=== PATIENT | female | born 1980 ===

== ENCOUNTER 2024-04-16 17:10 | Inpatient (IN) | payer OTHER ==
[~2024-04-16] VITALS: Ht 165.1 cm; Wt 86.8 kg
[2024-04-16 18:54] LABS: Source, Urine Clean Catch
[2024-04-16 19:01] LABS: Appearance, Urine Hazy (Clear); Blood, Urine 2+ (Neg); Color, Urine Amber (P-Yellow); Glucose Qualitative, Urine Neg (Neg); Ketones, Urine 1+ (Neg); Leukocyte Esterase, Urine 3+ (Neg); Nitrite, Urine Pos (Neg); Protein, Urine 2+ (Neg); Urobilinogen, Urine 3+ (Normal)
[2024-04-16 19:08] LABS: Bilirubin, Urine 3+ (Neg)
[2024-04-16 19:10] LABS: Bacteria Many /hpf; Squamous Epithelial Cells Mod /hpf (Few); White Blood Cells, Urine 50-100 /hpf (0-5)
[2024-04-16] MEDS ORDERED: Morphine Sulfate 4 MG/1 ML Injection IV ONE (19:55)
[2024-04-17] MEDS ORDERED: Morphine Sulfate 4 MG/1 ML Injection IV ONE (00:40)
[2024-04-17 00:58] LABS: Automated BF WBC Count 0.069 K/mm3 (0-999)
[2024-04-17] MEDS ORDERED: CefTRIAXone Sodium 1,000 MG in NS 100 ML IV ONE (01:05)
[2024-04-17 01:35] LABS: Amylase, Body Fluid 3 U/L; Glucose, Body Fluid 148 mg/dL; Lactate Dehydrogenase, Body Fl 55 U/L; Protein, Body Fluid 1.2 g/dL
[2024-04-17 02:36] LABS: RBC Count, Body Fluid 61 /mm3 (0-0)
[2024-04-17 02:38] LABS: Appearance, Body Fluid Clear (Clear); Body Fluid WBC Count 69 /mm3 (0-999); Color, Body Fluid Yellow (None-Yellow)
[2024-04-17 02:44] LABS: Total Cell Count, Body Fluid 100
[2024-04-17] MEDS ORDERED: FLU VACC TS2024-25(6MOS UP)/PF 45 MCG/0.5 ML SYRINGE IM ONE (03:05)
[2024-04-17] MEDS ORDERED: Ondansetron HCl 2 MG / ML 2ML Vial IV PRN (03:10)
[2024-04-17] MEDS ORDERED: Phytonadione 5 MG Tab PO ONE (04:00)
[2024-04-17] MEDS ORDERED: Potassium Chloride 20 MEQ/15 ML UDC PO ONE ×2 (04:00→07:45)
[2024-04-17] MEDS ORDERED: Omeprazole 20 MG CapCR PO SCH (06:00)
[2024-04-17 06:03] LABS: Albumin, Blood 1.6 g/dL (3.4-5.0); Albumin/Globulin Ratio 0.3 (0.8-1.8); Bilirubin, Total 3.7 mg/dL (0.1-1.0); Bun/Creatinine Ratio 16.1 (12.0-20.0); Calcium, Blood 7.9 mg/dL (8.5-10.1); Creatinine, Blood 0.87 mg/dL (0.40-1.00); Globulin, Blood 4.7 g/dL (2.2-4.0); Potassium, Blood 3.5 mmol/L (3.5-5.5); Total Protein, Blood 6.3 g/dL (6.4-8.2)
[2024-04-17] MEDS ORDERED: Insulin Human Lispro 100 Units/ML 3ML Syringe SC SCH (07:30)
[2024-04-17 07:42] LABS: BASOPHILS PERCENT AUTO 1 % (0-2); EOSINOPHILS ABSOLUTE AUTO 0.31 K/mm3 (0.00-0.68); EOSINOPHILS PERCENT AUTO 2 % (0-6); Hematocrit 29.3 % (33.0-51.0); Hemoglobin 9.6 g/dL (11.5-16.0); IMMATURE GRAN PERCENT AUTO 1 % (0-1); LYMPHOCYTES ABSOLUTE AUTO 1.35 K/mm3 (0.84-5.20); LYMPHOCYTES PERCENT AUTO 8 % (21-46); MONOCYTES ABSOLUTE AUTO 1.69 K/mm3 (0.16-1.47); MONOCYTES PERCENT AUTO 10 % (4-13); Mean Corpuscular HGB Conc 32.8 g/dL (31.5-36.5); Mean Corpuscular Volume 107 fL (80-100); Mean Platelet Volume 9.4 fL (9.1-12.4); NEUTROPHILS ABSOLUTE AUTO 13.83 K/mm3 (1.96-9.15); NEUTROPHILS PERCENT AUTO 80 % (41-73); Platelet Count 263 K/mm3 (150-400); RDW Standard Deviation 62.8 fL (35.1-46.3); Red Blood Cell Count 2.74 M/mm3 (3.80-5.20); White Blood Cell Count 17.38 K/mm3 (4.00-11.30)
[2024-04-17] MEDS ORDERED: Lactobacil 2-S.Thermo-Bifido 1 1 Cap PO SCH (09:00)
[2024-04-17 09:18] VITALS: BP 123/88
--- NOTE | 2024-04-17 11:19 | NUR ---
PT TITRATED OFF O2 THIS MORNING. SATS WERE 92% AT REST ON RA. WITH AMBULATION OF 20 FEET PT DROPPED TO 86% ON RA. APPLIED 1 LPM OF O2 VIA NC AND PT SATS MAINTAINED AT 90% WITH AMBULATING 100 FEET IN HALLWAY.
[2024-04-17] MEDS ORDERED: Furosemide 40 MG Tab PO ONE (16:10)
[2024-04-17] MEDS ORDERED: Albumin Human 50 ML IV ONE (16:20)
[2024-04-17 16:35] VITALS: BP 122/80
[2024-04-17] MEDS ORDERED: NS 250 ML IV PRN (17:05)
--- NOTE | 2024-04-17 18:06 | NUR ---
SHIFT SUMMARY: PT IS A/O X 4, SBA. PLEASANT AND COOPERATIVE WITH CARE. PT REPORTS PAIN TO FEET AND ABD IS TOLERABLE THROUGHOUT THE SHIFT. ABD SEVERELY DISTENDED. PARACENTESIS SITE BANDAGE CDI. NO SIGNS OF DRAINAGE FROM SITE SINCE ARRIVING FROM ER. PT DENIES NEEDS AT THIS TIME. ALBUMIN AND LASIX GIVEN PER ORDER. HAT PLACED IN TOILET AND REQUESTED PT TO CALL WHEN SHE HAS GONE TO THE BATHROOM SO WE CAN MEASURE URINE. PT V/U.
[2024-04-17 19:15] VITALS: BP 122/79
[2024-04-17] MEDS ORDERED: CefTRIAXone Sodium 1,000 MG in NS 100 ML IV SCH (21:00)
[2024-04-18 05:12] VITALS: BP 124/73
[2024-04-18 06:52] LABS: BASOPHILS ABSOLUTE AUTO 0.12 K/mm3 (0.00-0.23); BASOPHILS PERCENT AUTO 1 % (0-2); EOSINOPHILS ABSOLUTE AUTO 0.44 K/mm3 (0.00-0.68); EOSINOPHILS PERCENT AUTO 3 % (0-6); Hematocrit 30.3 % (33.0-51.0); Hemoglobin 9.8 g/dL (11.5-16.0); IMMATURE GRAN ABSOLUTE AUTO 0.05 K/mm3 (0.00-0.10); IMMATURE GRAN PERCENT AUTO 0 % (0-1); LYMPHOCYTES ABSOLUTE AUTO 1.86 K/mm3 (0.84-5.20); LYMPHOCYTES PERCENT AUTO 13 % (21-46); MONOCYTES ABSOLUTE AUTO 1.33 K/mm3 (0.16-1.47); MONOCYTES PERCENT AUTO 9 % (4-13); Mean Corpuscular HGB 34.4 pg (26.0-34.0); Mean Corpuscular HGB Conc 32.3 g/dL (31.5-36.5); Mean Corpuscular Volume 106 fL (80-100); Mean Platelet Volume 9.6 fL (9.1-12.4); NEUTROPHILS ABSOLUTE AUTO 10.34 K/mm3 (1.96-9.15); NEUTROPHILS PERCENT AUTO 73 % (41-73); Platelet Count 296 K/mm3 (150-400); RDW Coefficient Variation 15.8 % (11.7-14.2); Red Blood Cell Count 2.85 M/mm3 (3.80-5.20); White Blood Cell Count 14.14 K/mm3 (4.00-11.30)
[2024-04-18 07:13] VITALS: BP 121/75
[2024-04-18 07:20] LABS: IMMATURE RETIC FRACTION 11.2 % (2.3-16.0); RETIC HGB EQUIVALENT 35.8 pg (28.20-36.60); RETICULOCYTE ABSOLUTE 0.1223 M/mm3 (0.0200-0.1100); RETICULOCYTE COUNT PERCENT 4.29 % (0.50-2.50)
[2024-04-18 07:22] LABS: Albumin, Blood 1.7 g/dL (3.4-5.0); Albumin/Globulin Ratio 0.4 (0.8-1.8); Bilirubin, Total 3.3 mg/dL (0.1-1.0); Bun/Creatinine Ratio 13.7 (12.0-20.0); Calcium, Blood 8.1 mg/dL (8.5-10.1); Creatinine, Blood 0.8 mg/dL (0.40-1.00); Globulin, Blood 4.6 g/dL (2.2-4.0); Potassium, Blood 3.6 mmol/L (3.5-5.5); Total Protein, Blood 6.3 g/dL (6.4-8.2)
[2024-04-18 07:49] LABS: Percent Saturation 56.8 % (15.0-50.0)
[2024-04-18] MEDS ORDERED: Furosemide 40 MG Tab PO SCH (09:00)
[2024-04-18] MEDS ORDERED: Spironolactone 25 MG Tab PO SCH (09:00)
[2024-04-18 16:07] VITALS: BP 117/76
--- NOTE | 2024-04-18 17:18 | NUR ---
SHIFT SUMMARY: PT IS A/O X 4 IND IN ROOM PLEASANT AND COOPERATIVE. PT HAD NO COMPLAINTS AND DENIED NEEDS THROUGHOUT THE DAY. PT NO ACUTE CHANGES.
[2024-04-18 19:35] VITALS: BP 129/79
[2024-04-18] MEDS ORDERED: Acetaminophen 325 MG TABLET PO PRN (20:35)
[2024-04-19 03:30] VITALS: BP 124/88
[2024-04-19 05:56] LABS: BASOPHILS ABSOLUTE AUTO 0.09 K/mm3 (0.00-0.23); BASOPHILS PERCENT AUTO 1 % (0-2); EOSINOPHILS ABSOLUTE AUTO 0.34 K/mm3 (0.00-0.68); EOSINOPHILS PERCENT AUTO 3 % (0-6); Hematocrit 31.8 % (33.0-51.0); Hemoglobin 10.2 g/dL (11.5-16.0); IMMATURE GRAN ABSOLUTE AUTO 0.06 K/mm3 (0.00-0.10); IMMATURE GRAN PERCENT AUTO 1 % (0-1); LYMPHOCYTES PERCENT AUTO 12 % (21-46); MONOCYTES PERCENT AUTO 9 % (4-13); Mean Corpuscular HGB 34.6 pg (26.0-34.0); Mean Corpuscular HGB Conc 32.1 g/dL (31.5-36.5); Mean Corpuscular Volume 108 fL (80-100); Mean Platelet Volume 9.3 fL (9.1-12.4); NEUTROPHILS ABSOLUTE AUTO 8.79 K/mm3 (1.96-9.15); NEUTROPHILS PERCENT AUTO 75 % (41-73); Platelet Count 289 K/mm3 (150-400); RDW Coefficient Variation 15.6 % (11.7-14.2); RDW Standard Deviation 62.1 fL (35.1-46.3); Red Blood Cell Count 2.95 M/mm3 (3.80-5.20); White Blood Cell Count 11.78 K/mm3 (4.00-11.30)
[2024-04-19 06:21] LABS: Albumin, Blood 1.8 g/dL (3.4-5.0); Albumin/Globulin Ratio 0.4 (0.8-1.8); Bilirubin, Total 3.1 mg/dL (0.1-1.0); Calcium, Blood 8.3 mg/dL (8.5-10.1); Creatinine, Blood 0.92 mg/dL (0.40-1.00); Globulin, Blood 4.5 g/dL (2.2-4.0); Potassium, Blood 3.4 mmol/L (3.5-5.5); Total Protein, Blood 6.3 g/dL (6.4-8.2)
[2024-04-19 07:09] VITALS: BP 127/77
[2024-04-19] MEDS ORDERED: Folic Acid 1 MG TAB PO SCH (09:00)
[2024-04-19] MEDS ORDERED: Ibuprofen 400 MG Tab PO PRN (09:00)
[2024-04-19] MEDS ORDERED: Capsaicin 0.025% Cream TOP SCH (09:00)
[2024-04-19] MEDS ORDERED: Spironolactone 50 MG Tab PO SCH (09:30)
[2024-04-19] MEDS ORDERED: FOLI1 PO ×2 (12:21)
[2024-04-19] MEDS ORDERED: FURO20 PO ×2 (12:21)
[2024-04-19] MEDS ORDERED: CAPSAICIN60 G1 TOP ×2 (12:21)
[2024-04-19] MEDS ORDERED: CIPR500 PO ×2 (12:22)
[2024-04-19] MEDS ORDERED: IBUP400 ×2 (12:22)
[2024-04-19] MEDS ORDERED: SPIR50 PO ×2 (12:22)
--- NOTE | 2024-04-19 13:01 | NUR ---
DISCHARGE, PT DISCHARGED HOME. NO QUESTIONS OR CONCERNS AT DISCHARGE, DISCHARGE INSTRUCTIONS DISCUSSED WITH PT.
[2024-04-19 15:02] LABS: TRANSFERRIN 78 mg/dL (200-360)
[2024-04-19 17:00] LABS: HEPATITIS C AB CIA INTERP Negative (Negative); HEPATITIS C ANTIBODY CIA INDEX 0.04 IV
[2024-04-20 08:55] LABS: HEPATITIS B SURFACE ANTIBODY >1000.00 IU/L; HEPATITIS B SURFACE ANTIGEN Negative (Negative); HEPATITIS BE ANTIBODY Negative (Negative); HEPATITIS BE ANTIGEN Negative (Negative)
== END 2024-04-19 12:49 | disposition home or self-care (01) | DRG 432 ==
LOC: ER 17:10 → ERHOLD 04-17 03:49 → MEDS 04-17 03:49
PROVIDERS: Student in an Organized Health Care Education/Training Program; ADMIT Internal Medicine
PROC: 0W9G3ZX Drainage of Peritoneal Cavity, Percutaneous Approach, Diagnostic (ICD-10-PCS; principal; 2024-04-16)
PROC: 30233J1 Transfusion of Nonautologous Serum Albumin into Peripheral Vein, Percutaneous Approach (ICD-10-PCS; 2024-04-17)
PROC: 3E03329 Introduction of Other Anti-infective into Peripheral Vein, Percutaneous Approach (ICD-10-PCS; 2024-04-17)
DX: K70.31 Alcoholic cirrhosis of liver with ascites (principal); A41.9 Sepsis, unspecified organism; E87.1 Hypo-osmolality and hyponatremia; N39.0 Urinary tract infection, site not specified; K70.11 Alcoholic hepatitis with ascites; E87.6 Hypokalemia; D53.9 Nutritional anemia, unspecified; Z28.21 Immunization not carried out because of patient refusal; I10 Essential (primary) hypertension; E80.6 Other disorders of bilirubin metabolism; Z97.5 Presence of (intrauterine) contraceptive device
CPT/HCPCS: 36415; 49082; 71046; 74177; 76705; 80053; 81001; 82150; 82607; 82728; 82746; 82945; 82947; 83036; 83540; 83550; 83615; 83690; 83880; 84157; 84466; 85025; 85045; 86803; 87070; 87086; 87205; 89051; 93005; 93010; 96365-59; 96375-59; 96376-59; 99285-25; A9270; J0696; J2270; J7050; P9047; Q9967

== ENCOUNTER → 2024-04-16 | Outpatient (CLI) | payer OTHER ==
[~2024-04-16] MED LIST: CAPSAICIN60 G1 TOP; CIPR500 PO; FOLI1 PO; FURO20 PO; IBUP400; SPIR50 PO
[2024-04-16 16:16] LABS: BASOPHILS ABSOLUTE AUTO 0.16 K/mm3 (0.00-0.23); BASOPHILS PERCENT AUTO 1 % (0-2); EOSINOPHILS ABSOLUTE AUTO 0.28 K/mm3 (0.00-0.68); EOSINOPHILS PERCENT AUTO 1 % (0-6); Hematocrit 37.6 % (33.0-51.0); Hemoglobin 12.3 g/dL (11.5-16.0); IMMATURE GRAN ABSOLUTE AUTO 0.09 K/mm3 (0.00-0.10); IMMATURE GRAN PERCENT AUTO 1 % (0-1); LYMPHOCYTES ABSOLUTE AUTO 1.41 K/mm3 (0.84-5.20); LYMPHOCYTES PERCENT AUTO 7 % (21-46); MONOCYTES ABSOLUTE AUTO 1.41 K/mm3 (0.16-1.47); MONOCYTES PERCENT AUTO 7 % (4-13); Mean Corpuscular HGB Conc 32.7 g/dL (31.5-36.5); Mean Corpuscular Volume 104 fL (80-100); Mean Platelet Volume 9.3 fL (9.1-12.4); NEUTROPHILS ABSOLUTE AUTO 16.44 K/mm3 (1.96-9.15); NEUTROPHILS PERCENT AUTO 83 % (41-73); Platelet Count 428 K/mm3 (150-400); RDW Coefficient Variation 16.2 % (11.7-14.2); RDW Standard Deviation 61.6 fL (35.1-46.3); Red Blood Cell Count 3.62 M/mm3 (3.80-5.20); White Blood Cell Count 19.79 K/mm3 (4.00-11.30)
[2024-04-16 16:32] LABS: Albumin/Globulin Ratio 0.3 (0.8-1.8); Bilirubin, Total 5.1 mg/dL (0.1-1.0); Bun/Creatinine Ratio 10.2 (12.0-20.0); Calcium, Blood 8.6 mg/dL (8.5-10.1); Creatinine, Blood 1.28 mg/dL (0.40-1.00); Potassium, Blood 3.2 mmol/L (3.5-5.5)
[2024-04-16 17:27] LABS: International Normalized Ratio 1.55; Prothrombin Time Results 16.1 Sec (9.7-11.5)
[2024-04-18 10:45] LABS: HEPATITIS A ANTIBODY, IGM Negative (Negative); HEPATITIS B CORE ANTIBODY, IGM Negative (Negative); HEPATITIS B SURFACE ANTIGEN Negative (Negative); HEPATITIS C AB CIA INTERP Negative (Negative); HEPATITIS C ANTIBODY CIA INDEX 0.06 IV
== END ==
LOC: LAB SHORT 16:09 → LAB 16:09
PROVIDERS: Physician Assistant
DX: R14.0 Abdominal distension (gaseous) (principal)
CPT/HCPCS: 80053; 80074; 85025; 85610

== ENCOUNTER → 2024-07-07 | Outpatient (CLI) | payer OTHER ==
[2024-07-08 12:49] LABS: C DIFFICILE DNA NEGATIVE (Negative)
== END | disposition home or self-care (01) ==
LOC: LAB SHORT 23:00
PROVIDERS: Nurse Practitioner Family
DX: A49.8 Other bacterial infections of unspecified site (principal)
CPT/HCPCS: 87493; 89055

== ENCOUNTER 2024-09-16 02:17 | Emergency (ER) | payer SELFPAY ==
[~2024-09-16] VITALS: Ht 165.1 cm; Wt 63.5 kg
[2024-09-16] MEDS ORDERED: CefTRIAXone Sodium 2,000 MG in NS 100 ML IV ONE (02:25)
[2024-09-16] MEDS ORDERED: NS 1,000 ML IV SCH ×2 (02:25→04:20)
[2024-09-16] MEDS ORDERED: Pantoprazole Sodium 40 MG in NS 50 ML IV SCH (02:25)
[2024-09-16] MEDS ORDERED: Octreotide Acetate 50 MCG in NS 50 ML IV ONE (02:25)
[2024-09-16] MEDS ORDERED: Octreotide Acetate 500 MCG in NS 250 ML IV SCH (02:25)
[2024-09-16] MEDS ORDERED: Pantoprazole Sodium 40 MG Injection IV ONE (02:25)
[2024-09-16 02:35] LABS: BASOPHILS ABSOLUTE AUTO 0.09 K/mm3 (0.00-0.23); BASOPHILS PERCENT AUTO 1 % (0-2); EOSINOPHILS PERCENT AUTO 0 % (0-6); Hematocrit 22.8 % (33.0-51.0); Hemoglobin 7.3 g/dL (11.5-16.0); IMMATURE GRAN ABSOLUTE AUTO 0.05 K/mm3 (0.00-0.10); IMMATURE GRAN PERCENT AUTO 1 % (0-1); LYMPHOCYTES ABSOLUTE AUTO 0.74 K/mm3 (0.84-5.20); LYMPHOCYTES PERCENT AUTO 7 % (21-46); MONOCYTES ABSOLUTE AUTO 0.68 K/mm3 (0.16-1.47); MONOCYTES PERCENT AUTO 7 % (4-13); Mean Corpuscular HGB 37.2 pg (26.0-34.0); Mean Corpuscular Volume 116 fL (80-100); Mean Platelet Volume 9.5 fL (9.1-12.4); NEUTROPHILS ABSOLUTE AUTO 8.53 K/mm3 (1.96-9.15); NEUTROPHILS PERCENT AUTO 85 % (41-73); Platelet Count 192 K/mm3 (150-400); RDW Coefficient Variation 14.6 % (11.7-14.2); RDW Standard Deviation 61.1 fL (35.1-46.3); Red Blood Cell Count 1.96 M/mm3 (3.80-5.20); White Blood Cell Count 10.09 K/mm3 (4.00-11.30)
[2024-09-16 02:55] LABS: International Normalized Ratio 1.99; Prothrombin Time Results 20.8 Sec (9.7-11.5)
[2024-09-16 03:02] LABS: Albumin, Blood 2.2 g/dL (3.4-5.0); Albumin/Globulin Ratio 0.4 (0.8-1.8); Bilirubin, Total 6.1 mg/dL (0.1-1.0); Bun/Creatinine Ratio 18.6 (12.0-20.0); Calcium, Blood 8.4 mg/dL (8.5-10.1); Creatinine, Blood 1.18 mg/dL (0.40-1.00); Globulin, Blood 5.2 g/dL (2.2-4.0); Magnesium, Blood 1.4 mg/dL (1.6-2.4); Potassium, Blood 3.9 mmol/L (3.5-5.5); Total Protein, Blood 7.4 g/dL (6.4-8.2)
[2024-09-16] MEDS ORDERED: Ondansetron HCl 2 MG / ML 2ML Vial ONE (03:19)
[2024-09-16] MEDS ORDERED: Ondansetron HCl 2 MG / ML 2ML Vial IV ONE (03:20)
[2024-09-16] MEDS ORDERED: NS 100 ML IV SCH (04:00)
[2024-09-16] MEDS ORDERED: NS 1,000 ML IV ONE (04:16)
[2024-09-16] MEDS ORDERED: Prochlorperazine Edisylate 10 mg Vial IV ONE (05:45)
== END 2024-09-16 05:50 | disposition home or self-care (01) ==
LOC: ER 02:17
PROVIDERS: Emergency Medicine
DX: K92.0 Hematemesis (principal); K92.2 Gastrointestinal hemorrhage, unspecified; K70.30 Alcoholic cirrhosis of liver without ascites; Z79.899 Other long term (current) drug therapy
CPT/HCPCS: 36415; 36430; 71045; 74174; 80053; 80320; 83605; 83735; 83880; 84484; 85025; 85610; 86850; 86900; 86901; 86923; 87040; 93005; 93010; 96365-59; 96367; 96368; 96374-59; 99285-25; J0696; J0780; J2354; J2405; J2470; J7030; J7050; P9016; P9059; Q9967

== ENCOUNTER 2025-03-27 07:11 | Emergency (ER) | payer OTHER ==
[~2025-03-27] VITALS: Ht 172.7 cm; Wt 65.8 kg
[~2025-03-27 07:11] MED LIST changes: +VITAMIN A PO
[2025-03-27] MEDS ORDERED: Ondansetron HCl 2 MG / ML 2ML Vial ONE (07:18)
[2025-03-27] MEDS ORDERED: Pantoprazole Sodium 40 MG Injection IV ONE (07:20)
[2025-03-27] MEDS ORDERED: Ondansetron HCl 2 MG / ML 2ML Vial IV ONE ×2 (07:20→08:35)
[2025-03-27] MEDS ORDERED: Octreotide Acetate 500 MCG in NS 250 ML IV SCH (07:25)
[2025-03-27] MEDS ORDERED: CefTRIAXone Sodium 1,000 MG in NS 100 ML IV ONE (07:25)
[2025-03-27] MEDS ORDERED: NS 2,000 ML IV ONE (07:35)
[2025-03-27 07:48] LABS: Mean Corpuscular HGB Conc 31.4 g/dL (31.5-36.5); Mean Corpuscular Volume 124 fL (80-100); NRBC ABSOLUTE 0.03 K/mm3 (0.00-0.02); NRBC Auto 0.3 /100 WBC (0.0-0.2); Platelet Count 117 K/mm3 (150-400); RDW Coefficient Variation 19.6 % (11.7-14.2); RDW Standard Deviation 81.0 fL (35.1-46.3)
[2025-03-27 07:52] LABS: Hematocrit 14.0 % (33.0-51.0); Hemoglobin 4.4 g/dL (11.5-16.0)
[2025-03-27 08:01] LABS: Alanine Aminotransfer (ALT/SGP 23.0 U/L (12-78); Albumin, Blood 2.1 g/dL (3.4-5.0); Albumin/Globulin Ratio 0.5 (0.8-1.8); Anion Gap 21.0 mmol/L (3-11); Aspartate Aminotrans (AST/SGOT 86.0 U/L (12-37); Bilirubin, Total 10.3 mg/dL (0.1-1.0); Blood Urea Nitrogen 10.0 mg/dL (8-24); CO2, Blood 16.0 mmol/L (21-32); Calcium, Blood 8.3 mg/dL (8.5-10.1); Chloride, Blood 100.0 mmol/L (98-108); Creatinine, Blood 0.73 mg/dL (0.40-1.00); Globulin, Blood 4.3 g/dL (2.2-4.0); Glucose, Blood 213.0 mg/dL (70-99); Potassium, Blood 3.7 mmol/L (3.5-5.5); Sodium, Blood 133.0 mmol/L (136-145); Total Protein, Blood 6.4 g/dL (6.4-8.2)
[2025-03-27 08:02] LABS: Prothrombin Time Results 19.2 Sec (9.7-11.5)
[2025-03-27 08:09] LABS: BASOPHILS ABSOLUTE MAN 0.00 K/mm3 (0.00-0.23); BASOPHILS PERCENT MAN 0 % (0-2); EOSINOPHILS ABSOLUTE MAN 0.35 K/mm3 (0.00-0.68); EOSINOPHILS PERCENT MAN 4 % (0-6); LYMPHOCYTES ABSOLUTE MAN 2.14 K/mm3 (0.84-5.20); LYMPHOCYTES PERCENT MAN 24 % (21-46); MONOCYTES ABSOLUTE MAN 0.35 K/mm3 (0.16-1.47); MONOCYTES PERCENT MAN 4 % (4-13); NEUTROPHILS ABSOLUTE MAN 6.07 K/mm3 (1.96-9.15); SEG NEUTROPHILS PERCENT MAN 68 % (41-73)
[2025-03-28 07:11] LABS: Calcium, Ionized (POC) 1.03 mmol/L (1.10-1.46); Chloride (POC) 99 mmol/L (98-108); Creatinine (POC) 1.2 mg/dL (0.6-1.0); Glucose (ISTAT POC) 206 mg/dL (70-99); Hematocrit (POC) < 15.0 % (36.0-46.0); Potassium (POC) 3.8 mmol/L (3.5-5.5); Sodium (POC) 134 mmol/L (135-148); Total CO2 (POC) 16 mmol/L (21-32)
== END 2025-03-27 10:49 | disposition short-term general hospital (02) ==
LOC: ER 07:11
PROVIDERS: Student in an Organized Health Care Education/Training Program
DX: K92.0 Hematemesis (principal); K92.1 Melena; K74.60 Unspecified cirrhosis of liver; Z79.899 Other long term (current) drug therapy
CPT/HCPCS: 80047; 80053; 83690; 85014; 85025; 85610; 85730; 86850; 86900; 86901; 86923; J0696; J2354; J2405; J2470; J7030; J7050; P9016; P9059